=== PATIENT | male | born 1965 | race African-American/Black ===

== ENCOUNTER 2017-03-11 10:48 | Emergency (ER) | payer OTHER ==
[~2017-03-11] VITALS: Ht 185.4 cm; Wt 117.9 kg
[2017-03-11 10:51] VITALS: BP 153/97
== END 2017-03-11 12:29 | disposition home or self-care (01) ==
LOC: ED 10:48
DX: S16.1XXA Strain of muscle, fascia and tendon at neck level, initial encounter (principal); I10 Essential (primary) hypertension; V52.6XXA Passenger in pick-up truck or van injured in collision with two- or three-wheeled motor vehicle in traffic accident, initial encounter; Y93.89 Activity, other specified; Y99.8 Other external cause status; Y92.89 Other specified places as the place of occurrence of the external cause